=== PATIENT | male | born 1965 | race Caucasian/White ===

== ENCOUNTER 2022-02-06 10:51 | Emergency (ER) | payer OTHER ==
[~2022-02-06] VITALS: Ht 170.2 cm; Wt 95.3 kg
[2022-02-06 11:10] VITALS: BP_SYST 130
--- NOTE | 2022-02-06 11:19 | NUR ---
Patient to ER bed 05 to gown for evaluation. Side rails up.
--- NOTE | 2022-02-06 11:53 | NUR ---
BIB CARE PROVIDER. PT WITH HX OF MENTAL DELAY. PT HIGH FUNCTIONING. C/C OF ABDOMINAL PAIN X 2 DAYS WITH ASSOCIATED N/V. PT REPORTS VOMITING LAST NIGHT BUT NOT TODAY. PT CONSERVED FROM [facility]. REPORTS PAIN AT 1/10, DENIES ANY NAUSEA. CONDITION STABLE AT THIS TIME. WILL MONITOR. DR. MONTALVO SEEN, PENDING HIS ORDERS.
[2022-02-06] MEDS ORDERED: MAG HYDROX/AL HYDROX/SIMETH 30 ML, LIDOCAINE VISCOUS 2% 15ML (PO) 15 ML, DICYCLOMINE HC... PO ONE ×3 (12:00)
[2022-02-06 12:11] LABS: BASOPHILS % (AUTO) 0.2 % (0.0-2.0); EOSINOPHILS # (AUTO) 0.1 K/uL (0.0-0.4); EOSINOPHILS % (AUTO) 2.3 % (0.0-4.0); HEMATOCRIT 52.8 % (36-54); HEMOGLOBIN 18.2 g/dL (14.0-18.0); LYMPHOCYTES # (AUTO) 0.5 K/uL (1.0-5.5); LYMPHOCYTES % (AUTO) 13.5 % (20.5-51.5); MEAN CORPUSCULAR HEMOGLOBIN 34 pg (27-31); MEAN CORPUSCULAR HGB CONC 35 % (32-36); MEAN CORPUSCULAR VOLUME 97 fL (79.0-98.0); MONOCYTES # (AUTO) 0.6 K/uL (0.0-1.0); MONOCYTES % (AUTO) 16.4 % (1.7-9.3); NEUTROPHILS # (AUTO) 2.4 K/uL (1.8-7.7); NEUTROPHILS % (AUTO) 67.6 % (40.0-70.0); PLATELET COUNT (AUTO) 165 K/uL (130-430); RED BLOOD CELL COUNT(AUTO) 5.43 MIL/uL (4.2-6.2); RED CELL DISTRIBUTION WIDTH 13.1 % (9.0-15.0)
[2022-02-06 12:20] LABS: WHITE BLOOD COUNT (AUTO) 3.5 K/uL (4.8-10.8)
[2022-02-06 12:23] LABS: CALCIUM 8.7 mg/dL (8.4-11.0); CREATININE 1.34 mg/dL (0.55-1.30); POTASSIUM 3.6 mmol/L (3.5-5.1)
[2022-02-06 12:29] LABS: ALBUMIN 3.4 g/dL (3.4-4.8)
[2022-02-06] MEDS ORDERED: NACL 0.9% 1,000 ML IV ONE (13:00)
[2022-02-06] MEDS ORDERED: DICY10CA13 PO (13:40)
[2022-02-06] MEDS ORDERED: OMEP40CA20 PO (13:40)
[2022-02-06] MEDS ORDERED: ANT30 PO (13:40)
--- NOTE | 2022-02-06 14:36 | NUR ---
PT TO RECEIVE ONE LITER OF NS THEN MAY BE DISCHARGED PER DR. MONTALVO. 22G IV ACCESS INSERTED TO LEFT WRIST. NS BOLUS STARTED. CONDITION STABLE. GUARDIAN AT BEDSIDE. PT MOVED TO [facility]. DC INSTRUCTIONS SIGNED. GUARDIAN VERBALIZED UNDERSTANDING. WILL DC PT HOME ONCE IVF COMPLETED.
[2022-02-06 16:08] VITALS: BP_SYST 125
--- NOTE | 2022-02-18 20:38 | NUR ---
ADDENDUM: Nacl 0.9% 1000ml start time 13:00hr end time 14:00hr
== END 2022-02-06 16:08 | disposition home or self-care (01) ==
LOC: SED 10:51
DX: K29.70 Gastritis, unspecified, without bleeding (principal); N17.9 Acute kidney failure, unspecified; R10.9 Unspecified abdominal pain; R11.10 Vomiting, unspecified; Z79.899 Other long term (current) drug therapy
CPT/HCPCS: 99284; 96360; 80053; 83690; 85025; 36415; 74018; J2001; J7030